=== PATIENT | male | born 1965 | race Caucasian/White ===

== ENCOUNTER 2017-11-28 09:35 | Emergency (ER) | payer SELFPAY ==
[2017-11-28] MEDS ORDERED: Sodium Chloride 0.9% 10 ML Syringe FLUSH PRN (10:19)
[2017-11-28] MEDS ORDERED: Sodium Chloride 0.9% 2.5 ML Syringe FLUSH PRN (10:19)
[2017-11-28] MEDS ORDERED: Sodium Chloride 0.9% 1,000 ML IV ONE (10:20)
[2017-11-28] MEDS ORDERED: Ondansetron 4 MG/2 ML SDV IVPUSH ONE (10:20)
--- NOTE | 2017-11-28 10:25 | EDM.PDOC ---
ED HPI GENERAL MEDICAL PROBLEM - General Chief Complaint: General Stated Complaint: WEAK Time Seen by Provider: 11/28/17 10:07 - History of Present Illness INITIAL COMMENTS - FREE TEXT/NARRATIVE: HISTORY AND PHYSICAL: History of present illness: Patient is a 52-year-old male who presents with a more than four-month history of feeling rundown, nausea and vomiting, hot flashes gradual weight loss also of appetite, which he has not seen a provider. He says he has not had a fever with this nor has he had chest pain or shortness of breath or headache, back or leg pain. He has no neurosensory changes or weakness in his extremities. He has had normal urination and says that he always has loose stools since he had his hemorrhoids operated on 6 years ago. He says that he will have intermittent episodes of feeling better and then he feels worse again all with the same symptoms. He has had episodic vomiting and says that at the end of last week he had 4 days where he could not tolerate fluids but that has improved. He has a long-standing history of tobacco use, one pack per day but says he has cut down to only 4-5 cigarettes per day. He denies drug use or alcohol use. He's told the nurse that he had Lyme disease 20 years ago and he expressed some concern to her about this, but not to me. He says he has no chronic medical problems that he is aware of, but he feels like he's missed a lot of work because of this. He also complains of a "bad tooth" at his left upper wisdom tooth which has been a problem for quite some time. He doesn't feel it there swelling. There but he wanted to mention that When I mention his blood pressure here in the ED he says that it is always "borderline or high" and he has never been seen by provider to address that or to start him on meds. He says it was discussed by provider in the past but he did not get medication Review of systems: As per history of present illness and below otherwise all systems reviewed and negative. Past medical history: As per history of present illness and as reviewed below otherwise noncontributory. Surgical history: As per history of present illness and as reviewed below otherwise noncontributory. Social history: No reported history of drug or alcohol abuse. Family history: As per history of present illness and as reviewed below otherwise noncontributory. Physical exam: General: Well-developed, well-nourished thin man who is nontoxic and speaking clearly and easily in the ED. He moves easily without distress. Vital signs are noted by me HEENT: Atraumatic, normocephalic, pupils reactive, negative for conjunctival pallor or scleral icterus, mucous membranes of the, throat clear, neck supple, nontender, trachea midline. The patient has 2 areas of dental issues both at the upper wisdom teeth, right and left and although the patient says the left has more tenderness. There is no swelling or fluctuance and the right side actually looks more red with some minimal gum swelling. There is no facial swelling Lungs: Clear to auscultation, breath sounds equal bilaterally, chest nontender. Heart: S1S2, regular, negative for clicks, rubs, or JVD. Abdomen: Soft, nondistended, nontender. Negative for masses or hepatosplenomegaly. Negative for costovertebral tenderness. Pelvis: Stable nontender. Genitourinary: Deferred. Rectal: Deferred. Extremities: Atraumatic, negative for cords or calf pain. Neurovascular unremarkable. Full range of motion without defects or deficits Neuro: Awake, alert, oriented. Cranial nerves II through XII unremarkable. Cerebellum unremarkable. Motor and sensory unremarkable throughout. Exam nonfocal. Skin: No evidence of any overt rashes or lesions, no diaphoresis, normal turgor Diagnostics: CBC CMP magnesium level Monospot, TSH UA chest x-ray.lyme titer was requested by patient Therapeutics: IV fluids Zofran Discussed with the patient all testing results .When. I contacted lab about some delays, They said that his specimen was very lipemic. I have added a lipid panel to his labs today so that those can be followed up by his provider in the clinic and addressed with medications. He is aware that his lipids and potentially triglycerides are very elevated. He is also aware of my concerns but his blood pressure and that he needs to have a discussion with his new provider about medication for that. His heart rate has since improved, but his blood pressure is still elevated without any signs of end organ damage, so I will defer to primary care next week to address that. I will advise him on salt intake and junk food intake Impression: Generalized malaise, anorexia chronic etiology unclear; lipemic blood specimen with pending labs Impacted wisdom tooth with pain rule out early infection Definitive disposition and diagnosis as appropriate pending reevaluation and review of above. - Related Data Allergies Allergy/AdvReac Type Severity Reaction Status Date / Time Penicillins Allergy Cannot Verified 11/28/17 09:58 Remember Home Meds: Home Meds . [No Known Home Meds] 01/14/15 [History] Past Medical History Gastrointestinal History: Reports: Chronic Diarrhea, Hemorrhoids Neurological History: Reports: Other (See Below) Other Neuro History: [place] Palsy Immunologic History: Reports: Other (See Below) Other Immunologic History: hx of lymphectomy - Infectious Disease History Infectious Disease History: Reports: Chicken Pox, Other (See Below) Other Infectious Disease History: Lyme Disease - Past Surgical History GI Surgical History: Reports: Hernia, Inguinal, Hernia Repair/Other, Other (See Below) Musculoskeletal Surgical History: Reports: Hip Replacement Social & Family History - Family History Family Medical History: Noncontributory - Tobacco Use Smoking Status *Q: Current Every Day Smoker Years of Tobacco use: 30 Packs/Tins Daily: 0.5 - Caffeine Use Caffeine Use: Reports: Soda - Alcohol Use Days Per Week of Alcohol Use: 7 Number of Drinks Per Day: 4 Total Drinks Per Week: 28 - Recreational Drug Use Recreational Drug Use: Yes Drug Use in Last 12 Months: Yes Recreational Drug Type: Reports: Marijuana/Hashish Recreational Drug Use Frequency: Rarely ED ROS GENERAL - Review of Systems Review Of Systems: ROS reveals no pertinent complaints other than HPI. ED EXAM, GENERAL - Physical Exam Exam: See Below (See dictation) Course - Vital Signs Last Recorded V/S: Last Vital Signs Temp 37.0 C 11/28/17 12:20 Pulse 89 11/28/17 12:20 Resp 18 11/28/17 12:20 BP 157/107 H 11/28/17 12:20 Pulse Ox 97 11/28/17 12:20 - Orders/Labs/Meds Orders: Active Orders 24 hr Category Date Time Status COMPREHENSIVE METABOLIC PN,CMP [CHEM] Stat Lab 11/28/17 10:43 Results LIPID PANEL [CHEM] Stat Lab 11/28/17 12:21 Ordered MAGNESIUM [CHEM] Stat Lab 11/28/17 10:43 Results MISC TEST Stat Lab 11/28/17 10:37 Ordered TSH [CHEM] Stat Lab 11/28/17 10:43 Results UA W/MICROSCOPIC [URIN] Stat Lab 11/28/17 12:05 Ordered Sodium Chloride 0.9% [Saline Flush] Med 11/28/17 10:19 Active 10 ml FLUSH ASDIRECTED PRN Sodium Chloride 0.9% [Saline Flush] Med 11/28/17 10:19 Active 2.5 ml FLUSH ASDIRECTED PRN Saline Lock Insert [OM.PC] Stat Oth 11/28/17 10:19 Ordered Medication Orders Sodium Chloride (Saline Flush) 10 ml FLUSH ASDIRECTED PRN PRN Reason: Keep Vein Open Sodium Chloride (Saline Flush) 2.5 ml FLUSH ASDIRECTED PRN PRN Reason: Keep Vein Open Labs: Laboratory Tests 11/28/17 11/28/17 11/28/17 Range/Units 10:43 10:43 10:43 WBC 7.23 (4.0-11.0) K/uL RBC 4.77 (4.50-5.90) M/uL Hgb 15.4 (13.0-17.0) g/dL Hct 44.8 (38.0-50.0) % MCV 93.9 (80.0-98.0) fL MCH 32.3 H (27.0-32.0) pg MCHC 34.4 (31.0-37.0) g/dL RDW Std Deviation 54.2 (28.0-62.0) fl RDW Coeff of Zachary 16 H (11.0-15.0) % Plt Count 244 (150-400) K/uL MPV 10.50 (7.40-12.00) fL Neut % (Auto) 63.4 (48.0-80.0) % Lymph % (Auto) 28.6 (16.0-40.0) % Stephens % (Auto) 6.8 (0.0-15.0) % Eos % (Auto) 0.6 (0.0-7.0) % Baso % (Auto) 0.6 (0.0-1.5) % Neut # (Auto) 4.6 (1.4-5.7) K/uL Lymph # (Auto) 2.1 (0.6-2.4) K/uL Stephens # (Auto) 0.5 (0.0-0.8) K/uL Eos # (Auto) 0.0 (0.0-0.7) K/uL Baso # (Auto) 0.0 (0.0-0.1) K/uL Nucleated RBC % 0.0 /100WBC Nucleated RBCs # 0 K/uL Sodium 134 L (136-148) mmol/L Potassium 4.8 (3.5-5.1) mmol/L Chloride 100 (98-107) mmol/L Carbon Dioxide 25.0 (21.0-32.0) mmol/L BUN 13 (7.0-18.0) mg/dL Creatinine 0.9 (0.8-1.3) mg/dL Est Cr Clr Drug Dosing 87.63 mL/min Estimated GFR (MDRD) > 60.0 ml/min Glucose 112 H (74-106) mg/dL Calcium 9.2 (8.5-10.1) mg/dL Magnesium 1.8 (1.5-2.0) mg/dL Total Bilirubin 0.6 (0.2-1.0) mg/dL Alkaline Phosphatase 196 H (46-116) U/L Total Protein 7.2 (6.4-8.2) g/dL Albumin 3.4 (3.4-5.0) g/dL Globulin 3.8 H (2.0-3.5) g/dL Albumin/Globulin Ratio 0.9 L (1.3-2.8) TSH 3rd Generation 2.25 (0.36-3.74) uIU/mL Urine Color Urine Appearance Urine pH (5.0-8.0) Ur Specific [place] (1.001-1.035) Urine Protein (NEGATIVE) mg/dL Urine Glucose (UA) (NEGATIVE) mg/dL Urine Ketones (NEGATIVE) mg/dL Urine Occult Blood (NEGATIVE) Urine Nitrite (NEGATIVE) Urine Bilirubin (NEGATIVE) Urine Urobilinogen (<2.0) EU/dL Ur Leukocyte Esterase (NEGATIVE) Urine RBC (0-2/HPF) Urine WBC (0-5/HPF) Ur Epithelial Cells (NONE-FEW) Urine Bacteria (NEGATIVE) Monoscreen NEGATIVE (NEG) 11/28/17 Range/Units 12:05 WBC (4.0-11.0) K/uL RBC (4.50-5.90) M/uL Hgb (13.0-17.0) g/dL Hct (38.0-50.0) % MCV (80.0-98.0) fL MCH (27.0-32.0) pg MCHC (31.0-37.0) g/dL RDW Std Deviation (28.0-62.0) fl RDW Coeff of Zachary (11.0-15.0) % Plt Count (150-400) K/uL MPV (7.40-12.00) fL Neut % (Auto) (48.0-80.0) % Lymph % (Auto) (16.0-40.0) % Stephens % (Auto) (0.0-15.0) % Eos % (Auto) (0.0-7.0) % Baso % (Auto) (0.0-1.5) % Neut # (Auto) (1.4-5.7) K/uL Lymph # (Auto) (0.6-2.4) K/uL Stephens # (Auto) (0.0-0.8) K/uL Eos # (Auto) (0.0-0.7) K/uL Baso # (Auto) (0.0-0.1) K/uL Nucleated RBC % /100WBC Nucleated RBCs # K/uL Sodium (136-148) mmol/L Potassium (3.5-5.1) mmol/L Chloride (98-107) mmol/L Carbon Dioxide (21.0-32.0) mmol/L BUN (7.0-18.0) mg/dL Creatinine (0.8-1.3) mg/dL Est Cr Clr Drug Dosing mL/min Estimated GFR (MDRD) ml/min Glucose (74-106) mg/dL Calcium (8.5-10.1) mg/dL Magnesium (1.5-2.0) mg/dL Total Bilirubin (0.2-1.0) mg/dL Alkaline Phosphatase (46-116) U/L Total Protein (6.4-8.2) g/dL Albumin (3.4-5.0) g/dL Globulin (2.0-3.5) g/dL Albumin/Globulin Ratio (1.3-2.8) TSH 3rd Generation (0.36-3.74) uIU/mL Urine Color YELLOW Urine Appearance CLEAR Urine pH 7.0 (5.0-8.0) Ur Specific [place] 1.020 (1.001-1.035) Urine Protein NEGATIVE (NEGATIVE) mg/dL Urine Glucose (UA) NEGATIVE (NEGATIVE) mg/dL Urine Ketones NEGATIVE (NEGATIVE) mg/dL Urine Occult Blood NEGATIVE (NEGATIVE) Urine Nitrite NEGATIVE (NEGATIVE) Urine Bilirubin NEGATIVE (NEGATIVE) Urine Urobilinogen 0.2 (<2.0) EU/dL Ur Leukocyte Esterase NEGATIVE (NEGATIVE) Urine RBC 0-1 (0-2/HPF) Urine WBC 0-1 (0-5/HPF) Ur Epithelial Cells RARE (NONE-FEW) Urine Bacteria RARE (NEGATIVE) Monoscreen (NEG) Meds: Medications Generic Name Dose Route Start Last Admin Trade Name Freq PRN Reason Stop Dose Admin Sodium Chloride 10 ml 11/28/17 10:19 Saline Flush FLUSH ASDIRECTED PRN Keep Vein Open Sodium Chloride 2.5 ml 11/28/17 10:19 Saline Flush FLUSH ASDIRECTED PRN Keep Vein Open Discontinued Medications Generic Name Dose Route Start Last Admin Trade Name Freq PRN Reason Stop Dose Admin Sodium Chloride 1,000 mls @ 999 mls/hr 11/28/17 10:20 11/28/17 10:36 Normal Saline IV 11/28/17 11:20 999 mls/hr STAT ONE Administration Ondansetron HCl 4 mg 11/28/17 10:20 11/28/17 10:36 Zofran IVPUSH 11/28/17 10:21 4 mg ONETIME ONE Administration Departure - Departure Time of Disposition: 12:26 Disposition: Home, Self-Care 01 Condition: Good Clinical Impression: Generalized weakness, Malaise and fatigue, Pain, dental - Discharge Information Referrals: Aramis Castillo MD [Resident] - (Appt with at 0930 on December 05. Please come 15 minutes before you appt for registration) PCP,None [Primary Care Provider] - Forms: ED Department Discharge Additional Instructions: The following information is given to patients seen in the emergency department who are being discharged to home. This information is to outline your options for follow-up care. We provide all patients seen in our emergency department with a follow-up referral. The need for follow-up, as well as the timing and circumstances, are variable depending upon the specifics of your emergency department visit. If you don't have a primary care physician on staff, we will provide you with a referral. We always advise you to contact your personal physician following an emergency department visit to inform them of the circumstance of the visit and for follow-up with them and/or the need for any referrals to a consulting specialist. The emergency department will also refer you to a specialist when appropriate. This referral assures that you have the opportunity for followup care with a specialist. All of these measure are taken in an effort to provide you with optimal care, which includes your followup. Under all circumstances we always encourage you to contact your private physician who remains a resource for coordinating your care. When calling for followup care, please make the office aware that this follow-up is from your recent emergency room visit. If for any reason you are refused follow-up, please contact the [facility] emergency department at and ask to speak to the emergency department charge nurse. [facility] Primary care- [place] [address] You have a scheduled follow-up appointment next week on December 05 at 9:[address] Casitllo with the family practice residency clinic. Please keep that appointment as scheduled for further care and evaluation as we discussed. Push hydration, rest and try to eat small bites of food on a more frequent basis and continue to reduce and stop smoking. Please discuss with your new provider in the clinic. Your blood pressure as we discussed. Try to avoid salty foods and excess added salt. Return to ER as needed and as discussed. Please take antibiotics for your tooth as directed and use [id number] medications for any pain You can also discuss with her new provider the lab tests that were sent out to be performed and those results, Lyme disease titer. He will also need to address the lipid panel that was added onto your blood work upon discharge as these tests may be elevated and need to be addressed with medications - My Orders Last 24 Hours: My Active Orders 11/28/17 10:19 Sodium Chloride 0.9% [Saline Flush] 10 ml FLUSH ASDIRECTED PRN Sodium Chloride 0.9% [Saline Flush] 2.5 ml FLUSH ASDIRECTED PRN Saline Lock Insert [OM.PC] Stat 11/28/17 10:37 MISC TEST Stat 11/28/17 10:43 COMPREHENSIVE METABOLIC PN,CMP [CHEM] Stat MAGNESIUM [CHEM] Stat TSH [CHEM] Stat 11/28/17 12:05 UA W/MICROSCOPIC [URIN] Stat 11/28/17 12:21 LIPID PANEL [CHEM] Stat - Assessment/Plan Last 24 Hours: My Active Orders 11/28/17 10:19 Sodium Chloride 0.9% [Saline Flush] 10 ml FLUSH ASDIRECTED PRN Sodium Chloride 0.9% [Saline Flush] 2.5 ml FLUSH ASDIRECTED PRN Saline Lock Insert [OM.PC] Stat 11/28/17 10:37 MISC TEST Stat 11/28/17 10:43 COMPREHENSIVE METABOLIC PN,CMP [CHEM] Stat MAGNESIUM [CHEM] Stat TSH [CHEM] Stat 11/28/17 12:05 UA W/MICROSCOPIC [URIN] Stat 11/28/17 12:21 LIPID PANEL [CHEM] Stat
--- NOTE | 2017-11-28 11:15 | CR ---
EXAMINATION: Portable chest radiograph. HISTORY: Shortness of breath. FINDINGS: The trachea is midline. The cardiomediastinal silhouette is within normal limits. No pulmonary infilt rates, effusions or pneumothorax. Osseous structures appear unremarkable. IMPRESSION: No acute cardiopulmonary process.
[2017-11-28 11:45] LABS: CHLORIDE,CL 100 mmol/L (98-107)
[2017-11-28 11:52] LABS: SODIUM,NA 134 mmol/L (136-148)
[2017-11-28 12:21] VITALS: BP 157/107
== END 2017-11-28 12:41 | disposition home or self-care (01) ==
LOC: MW.ED 09:35
DX: K08.89 Other specified disorders of teeth and supporting structures (principal); R53.81 Other malaise; R53.1 Weakness; R63.0 Anorexia; F17.210 Nicotine dependence, cigarettes, uncomplicated; Z88.0 Allergy status to penicillin
CPT/HCPCS: 36415; 71045; 80053; 80061; 81001; 83735; 84443; 85025; 86308; 96361; 96374; 99283; J2405; J7040

== ENCOUNTER 2017-12-01 19:36 | Emergency (ER) | payer SELFPAY ==
[2017-12-01] MEDS ORDERED: Sodium Chloride 0.9% 1,000 ML IV ONE (19:47)
--- NOTE | 2017-12-01 19:49 | EDM.PDOC ---
ED HPI GENERAL MEDICAL PROBLEM - General Chief Complaint: General Stated Complaint: CONFUSION/FATIGUE Time Seen by Provider: 12/01/17 19:39 - History of Present Illness INITIAL COMMENTS - FREE TEXT/NARRATIVE: HISTORY AND PHYSICAL: History of present illness: Patient's 52-year-old white male history of chronic alcohol abuse who presents with concern of general fatigue he was seen for the same 3 days prior had an extensive workup his sisters here with him today wanting them reevaluated due to her plans on taking him to [place] with her. There is no chest pain vomiting diarrhea shortness of breath or other complaints. Review of systems: As per history of present illness and below otherwise all systems reviewed and negative. Past medical history: As per history of present illness and as reviewed below otherwise noncontributory. Surgical history: As per history of present illness and as reviewed below otherwise noncontributory. Social history: No reported history of drug or alcohol abuse. Family history: As per history of present illness and as reviewed below otherwise noncontributory. Physical exam: HEENT: Atraumatic, normocephalic, pupils reactive, negative for conjunctival pallor or scleral icterus, mucous membranes moist, throat clear, neck supple, nontender, trachea midline. Lungs: Clear to auscultation, breath sounds equal bilaterally, chest nontender. Heart: S1S2, regular, negative for clicks, rubs, or JVD. Abdomen: Soft, nondistended, nontender. Negative for masses or hepatosplenomegaly. Negative for costovertebral tenderness. Pelvis: Stable nontender. Genitourinary: Deferred. Rectal: Deferred. Extremities: Atraumatic, negative for cords or calf pain. Neurovascular unremarkable. Neuro: Awake, alert, oriented. Cranial nerves II through XII unremarkable. Cerebellum unremarkable. Motor and sensory unremarkable throughout. Exam nonfocal. Diagnostics: CBC CMP PT/INR EtOH EKG chest x-ray Therapeutics: Saline 1 L bolus Impression: #1 ethanol abuse #2 general malaise Definitive disposition and diagnosis as appropriate pending reevaluation and review of above. - Related Data Allergies Allergy/AdvReac Type Severity Reaction Status Date / Time Penicillins Allergy Cannot Verified 11/28/17 09:58 Remember Home Meds: Home Meds Amoxicillin 500 mg PO TID 12/01/17 [History] Past Medical History Gastrointestinal History: Reports: Chronic Diarrhea, Hemorrhoids Neurological History: Reports: Other (See Below) Other Neuro History: [place] Palsy Immunologic History: Reports: Other (See Below) Other Immunologic History: hx of lymphectomy - Infectious Disease History Infectious Disease History: Reports: Chicken Pox, Other (See Below) Other Infectious Disease History: Lyme Disease - Past Surgical History GI Surgical History: Reports: Hernia, Inguinal, Hernia Repair/Other, Other (See Below) Musculoskeletal Surgical History: Reports: Hip Replacement Social & Family History - Family History Family Medical History: Noncontributory - Tobacco Use Smoking Status *Q: Current Every Day Smoker Years of Tobacco use: 30 Packs/Tins Daily: 0.5 - Caffeine Use Caffeine Use: Reports: Soda - Alcohol Use Days Per Week of Alcohol Use: 7 Number of Drinks Per Day: 4 Total Drinks Per Week: 28 - Recreational Drug Use Recreational Drug Use: Yes Drug Use in Last 12 Months: Yes Recreational Drug Type: Reports: Marijuana/Hashish Recreational Drug Use Frequency: Rarely ED ROS GENERAL - Review of Systems Review Of Systems: ROS reveals no pertinent complaints other than HPI. ED EXAM, GENERAL - Physical Exam Exam: See Below (See dictation) Course - Vital Signs Last Recorded V/S: Last Vital Signs Temp 36.7 C 12/01/17 20:50 Pulse 80 12/01/17 20:50 Resp 16 12/01/17 20:50 BP 143/93 H 12/01/17 20:50 Pulse Ox 99 12/01/17 20:50 - Orders/Labs/Meds Orders: Active Orders 24 hr Category Date Time Status EKG Documentation Completion [RC] STAT Care 12/01/17 19:47 Active Chest 1V Frontal [CR] Stat Exams 12/01/17 19:47 Taken COMPREHENSIVE METABOLIC PN,CMP [CHEM] Stat Lab 12/01/17 20:00 Results ETHANOL BLOOD MEDICAL [CHEM] Stat Lab 12/01/17 20:00 Results LIPASE [CHEM] Stat Lab 12/01/17 20:00 Results Labs: Laboratory Tests 12/01/17 12/01/17 12/01/17 Range/Units 20:00 20:00 20:00 WBC 8.84 (4.0-11.0) K/uL RBC 5.21 (4.50-5.90) M/uL Hgb 17.1 H (13.0-17.0) g/dL Hct 48.3 (38.0-50.0) % MCV 92.7 (80.0-98.0) fL MCH 32.8 H (27.0-32.0) pg MCHC 35.4 (31.0-37.0) g/dL RDW Std Deviation 54.5 (28.0-62.0) fl RDW Coeff of Zachary 16 H (11.0-15.0) % Plt Count 337 (150-400) K/uL MPV 10.10 (7.40-12.00) fL Neut % (Auto) 56.6 (48.0-80.0) % Lymph % (Auto) 37.3 (16.0-40.0) % Warren % (Auto) 5.1 (0.0-15.0) % Eos % (Auto) 0.3 (0.0-7.0) % Baso % (Auto) 0.7 (0.0-1.5) % Neut # (Auto) 5.0 (1.4-5.7) K/uL Lymph # (Auto) 3.3 H (0.6-2.4) K/uL Warren # (Auto) 0.5 (0.0-0.8) K/uL Eos # (Auto) 0.0 (0.0-0.7) K/uL Baso # (Auto) 0.1 (0.0-0.1) K/uL Nucleated RBC % 0.0 /100WBC Nucleated RBCs # 0 K/uL INR 1.17 Sodium 131 L (136-148) mmol/L Potassium 4.1 (3.5-5.1) mmol/L Chloride 95 L (98-107) mmol/L Carbon Dioxide 26.7 (21.0-32.0) mmol/L BUN 14 (7.0-18.0) mg/dL Creatinine 1.0 (0.8-1.3) mg/dL Est Cr Clr Drug Dosing 75.69 mL/min Estimated GFR (MDRD) > 60.0 ml/min Glucose 139 H (74-106) mg/dL Calcium 8.5 (8.5-10.1) mg/dL Total Bilirubin 0.7 (0.2-1.0) mg/dL AST 173 H (15-37) IU/L Alkaline Phosphatase 194 H (46-116) U/L Total Protein 7.5 (6.4-8.2) g/dL Albumin 3.5 (3.4-5.0) g/dL Globulin 4.0 H (2.0-3.5) g/dL Albumin/Globulin Ratio 0.9 L (1.3-2.8) Lipase 358 (73-393) U/L Ethyl Alcohol 219 mg/dL Meds: Medications Discontinued Medications Generic Name Dose Route Start Last Admin Trade Name Say PRN Reason Stop Dose Admin Sodium Chloride 1,000 mls @ 999 mls/hr 12/01/17 19:47 12/01/17 20:01 Normal Saline IV 12/01/17 20:47 999 mls/hr STAT ONE Administration Departure - Departure Time of Disposition: 21:23 Disposition: Home, Self-Care 01 Condition: Good Clinical Impression: ETOH abuse - Discharge Information Referrals: PCP,None [Primary Care Provider] - Forms: ED Department Discharge Additional Instructions: The following information is given to patients seen in the emergency department who are being discharged to home. This information is to outline your options for follow-up care. We provide all patients seen in our emergency department with a follow-up referral. The need for follow-up, as well as the timing and circumstances, are variable depending upon the specifics of your emergency department visit. If you don't have a primary care physician on staff, we will provide you with a referral. We always advise you to contact your personal physician following an emergency department visit to inform them of the circumstance of the visit and for follow-up with them and/or the need for any referrals to a consulting specialist. The emergency department will also refer you to a specialist when appropriate. This referral assures that you have the opportunity for followup care with a specialist. All of these measure are taken in an effort to provide you with optimal care, which includes your followup. Under all circumstances we always encourage you to contact your private physician who remains a resource for coordinating your care. When calling for followup care, please make the office aware that this follow-up is from your recent emergency room visit. If for any reason you are refused follow-up, please contact the [facility] emergency department at and asked to speak to the emergency department charge nurse. Follow-up medical doctor as discussed return as needed as discussed - My Orders Last 24 Hours: My Active Orders 12/01/17 19:47 EKG Documentation Completion [RC] STAT Chest 1V Frontal [CR] Stat 12/01/17 20:00 COMPREHENSIVE METABOLIC PN,CMP [CHEM] Stat ETHANOL BLOOD MEDICAL [CHEM] Stat LIPASE [CHEM] Stat - Assessment/Plan Last 24 Hours: My Active Orders 12/01/17 19:47 EKG Documentation Completion [RC] STAT Chest 1V Frontal [CR] Stat 12/01/17 20:00 COMPREHENSIVE METABOLIC PN,CMP [CHEM] Stat ETHANOL BLOOD MEDICAL [CHEM] Stat LIPASE [CHEM] Stat
[2017-12-01 21:09] LABS: CHLORIDE,CL 95 mmol/L (98-107)
[2017-12-01 21:12] LABS: SODIUM,NA 131 mmol/L (136-148)
[2017-12-01 21:36] VITALS: BP 142/95
--- NOTE | 2017-12-03 14:50 | CR ---
EXAM DATE: 12/01/17 PATIENT'S AGE: 52 Patient: MIKEY RUIZ Facility: [place], [place] Site . Site : 1965 Study: XRay Chest [id number] 8:05:16 PM Ordering Physician: Damien Michaud Final Report: INDICATION: Chest Pain, shortness of breath TECHNIQUE: Chest radiograph 1 view COMPARISON: 06/01/09 FINDINGS: Mediastinum: The heart silhouette is normal in size and morphology. The mediastinum is normal in appearance. Lungs: Both lungs are unremarkable in appearance. No sign of pleural effusion seen. No pneumothorax is identified. Bones and soft tissue: Unremarkable for age. IMPRESSION: 1. No acute cardiopulmonary disease is seen. Dictated by: Zack Nunes MD @ 12/01/2017 20:27:43 (Electronic Signature) Report Signed by Proxy. [facility] HOSPITALChema
== END 2017-12-01 21:35 | disposition home or self-care (01) ==
LOC: MW.ED 19:36
DX: F10.120 Alcohol abuse with intoxication, uncomplicated (principal); F17.210 Nicotine dependence, cigarettes, uncomplicated; Y90.7 Blood alcohol level of 200-239 mg/100 ml; Z88.0 Allergy status to penicillin
CPT/HCPCS: 71045; 80053; 83690; 85025; 85610; 93005; 96360; 96361; 99285; G0480; J7040

== ENCOUNTER 2018-01-25 11:02 | Day surgery (SDC) | payer MEDICAID ==
[~2018-01-25 11:02] MED LIST: Lactated Ringers 1,000 ML IV SCH; Lidocaine 2% 5 ML SDV ONE; Propofol 200 MG/20 ML SDV ONE
--- NOTE | 2018-01-25 11:56 | PCM.PREANE ---
Preanesthetic Assessment - Anesthesia/Transfusion/Family Hx Anesthesia History: Prior Anesthesia Without Reaction Family History of Anesthesia Reaction: No Transfusion History: No Prior Transfusion(s) - Review of Systems General: No Symptoms Pulmonary: No Symptoms Neurological: No Symptoms - Physical Assessment NPO Status Date: 01/24/18 Height: 1.75 m Weight: 64.864 kg ASA Class: 2 Mental Status: Alert & Oriented x3 Airway Class: Mallampati = 2 Dentition: Reports: Normal Dentition ROM/Head Extension: Full Lungs: Clear to Auscultation, Normal Respiratory Effort Cardiovascular: Regular Rate, Regular Rhythm - Allergies Allergies/Adverse Reactions: Allergies Allergy/AdvReac Type Severity Reaction Status Date / Time No Known Allergies Allergy Verified 01/22/18 11:37 - Anesthesia Plan Pre-Op Medication Ordered: None - Acknowledgements Anesthesia Type Planned: MAC Pt an Appropriate Candidate for the Planned Anesthesia: Yes Alternatives and Risks of Anesthesia Discussed w Pt/Guardian: Yes Pt/Guardian Understands and Agrees with Anesthesia Plan: Yes Additional Comments: formerly heavy alcohol use, significant reduction in use over the last few weeks. Did not take bowel prep last night. Will prob cancel PreAnesthesia Questionnaire - Past Health History Medical/Surgical History: Denies Medical/Surgical History HEENT History: Reports: Other (See Below) Other HEENT History: wears contacts Gastrointestinal History: Reports: Hemorrhoids, Other (See Below) Other Gastrointestinal History: recently treated for C-diff Genitourinary History: Reports: None, Renal Calculus Musculoskeletal History: Reports: Fracture Neurological History: Reports: Concussion, Other (See Below) Other Neuro History: hx [place] Palsy Psychiatric History: Reports: Anxiety Endocrine/Metabolic History: Reports: None Immunologic History: - Infectious Disease History Infectious Disease History: Reports: Chicken Pox, Other (See Below) Other Infectious Disease History: Lyme Disease - Past Surgical History Head Surgeries/Procedures: Reports: None GI Surgical History: Reports: Hernia, Inguinal, Other (See Below) Other GI Surgeries/Procedures: hemorrhoidectomy, padmini inguinal hernia repair Musculoskeletal Surgical History: Reports: Hip Replacement Other Musculoskeletal Surgeries/Procedures:: rt hip replacement - SUBSTANCE USE Smoking Status *Q: Current Every Day Smoker Tobacco Use Within Last Twelve Months: Cigarettes Days Per Week of Alcohol Use: 7 Number of Drinks Per Day: 2 Total Drinks Per Week: 14 Recreational Drug Use History: No - HOME MEDS Home Medications: Home Meds Ascorbate Calcium [Vitamin C] 1 tab PO DAILY 01/22/18 [History] Cholecalciferol (Vitamin D3) [Vitamin D3] 1 tab PO DAILY 01/22/18 [History] Multivitamin [Multivitamins] 1 tab PO DAILY 01/22/18 [History] - CURRENT (IN HOUSE) MEDS Current Meds: Current Medications Lactated Ringer's (Ringers, Lactated) 1,000 mls @ 125 mls/hr IV ASDIRECTED LATRELL Discontinued Medications Lidocaine (Xylocaine-Mpf 2%) Confirm Administered Dose 5 ml .ROUTE .STK-MED ONE Stop: 01/25/18 07:40 Propofol (Diprivan 20 Ml) Confirm Administered Dose 400 mg .ROUTE .STK-MED ONE Stop: 01/25/18 07:40
== END 2018-01-25 12:00 ==
LOC: MW.SDS 11:02
PROVIDERS: ATTEND Surgery
DX: Z12.11 Encounter for screening for malignant neoplasm of colon (principal); F17.210 Nicotine dependence, cigarettes, uncomplicated; F41.9 Anxiety disorder, unspecified; Z79.899 Other long term (current) drug therapy; Z98.890 Other specified postprocedural states; Z53.8 Procedure and treatment not carried out for other reasons
CPT/HCPCS: J2704

== ENCOUNTER 2018-02-01 10:02 | Day surgery (SDC) | payer MEDICAID ==
[~2018-02-01 10:02] MED LIST changes: -Lidocaine 2% 5 ML SDV ONE; +Midazolam 1 MG/ML 2 ML SDV ONE; +fentaNYL 100 MCG/2 ML SDV ONE
--- NOTE | 2018-02-01 10:46 | PCM.PREANE ---
Preanesthetic Assessment - Anesthesia/Transfusion/Family Hx Anesthesia History: Prior Anesthesia Without Reaction Family History of Anesthesia Reaction: No Transfusion History: No Prior Transfusion(s) Intubation History: Unknown - Review of Systems General: No Symptoms Pulmonary: No Symptoms Cardiovascular: No Symptoms Gastrointestinal: Diarrhea, Other (brandon loss) Neurological: No Symptoms Other: Reports: None - Physical Assessment Height: 1.77 m Weight: 64.864 kg ASA Class: 2 Mental Status: Alert & Oriented x3 Airway Class: Mallampati = 2 Dentition: Reports: Normal Dentition, [place](s) (x1 upper front) Thyro-Mental Finger Breadths: 3 Mouth Opening Finger Breadths: 3 ROM/Head Extension: Full Lungs: Clear to Auscultation, Normal Respiratory Effort Cardiovascular: Regular Rate, Regular Rhythm - Allergies Allergies/Adverse Reactions: Allergies Allergy/AdvReac Type Severity Reaction Status Date / Time No Known Allergies Allergy Verified 01/22/18 11:37 - Blood Blood Available: No - Anesthesia Plan Pre-Op Medication Ordered: None - Acknowledgements Anesthesia Type Planned: MAC Pt an Appropriate Candidate for the Planned Anesthesia: Yes Alternatives and Risks of Anesthesia Discussed w Pt/Guardian: Yes Pt/Guardian Understands and Agrees with Anesthesia Plan: Yes PreAnesthesia Questionnaire - Past Health History Medical/Surgical History: Denies Medical/Surgical History HEENT History: Reports: Other (See Below) Other HEENT History: wears contacts 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) Gastrointestinal History: Reports: Chronic Diarrhea, Hemorrhoids Other Gastrointestinal History: recently treated for C-diff Genitourinary History: Reports: None, Renal Calculus Musculoskeletal History: Reports: Fracture Neurological History: Reports: Other (See Below) 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 internal and external hemorrhoidectomy Musculoskeletal Surgical History: Reports: Hip Replacement Other Musculoskeletal Surgeries/Procedures:: rt hip replacement - SUBSTANCE USE Smoking Status *Q: Current Every Day Smoker (1 ppd) Tobacco Use Within Last Twelve Months: Cigarettes Recreational Drug Use History: No - HOME MEDS Home Medications: Home Meds Ascorbate Calcium [Vitamin C] 1 tab PO DAILY 01/22/18 [History] Cholecalciferol (Vitamin D3) [Vitamin D3] 1 tab PO DAILY 01/22/18 [History] Multivitamin [Multivitamins] 1 tab PO DAILY 01/22/18 [History] Vitamin B Complex [B Complex] 1 tab PO DAILY 01/29/18 [History] - CURRENT (IN HOUSE) MEDS Current Meds: Current Medications Lactated Ringer's (Ringers, Lactated) 1,000 mls @ 125 mls/hr IV ASDIRECTED LATRELL Discontinued Medications Fentanyl (Sublimaze) Confirm Administered Dose 100 mcg .ROUTE .STK-MED ONE Stop: 02/01/18 07:36 Midazolam HCl (Versed 1 Mg/Ml) Confirm Administered Dose 2 mg .ROUTE .STK-MED ONE Stop: 02/01/18 07:36 Propofol (Diprivan 20 Ml) Confirm Administered Dose 200 mg .ROUTE .STK-MED ONE Stop: 02/01/18 07:36
[2018-02-01] MEDS ORDERED: Propofol 200 MG/20 ML SDV ONE (10:52)
[2018-02-01] MEDS ORDERED: fentaNYL 100 MCG/2 ML SDV ONE (11:05)
[2018-02-01 11:50] VITALS: BP 122/89
--- NOTE | 2018-02-01 12:23 | PCM.OPNOTE ---
- General Post-Op/Procedure Note Date of Surgery/Procedure: 02/01/18 Operative Procedure(s): attempted colonoscopy Findings: scoped to 20cm, pt kept on farting, and finally spitted out the scope; pt scheduled for BE for incomplete colonoscopy; see dictation for details; see dict [id number] Pre Op Diagnosis: scrn colonoscopy Post-Op Diagnosis: Same Primary Surgeon: Gerald Preston Complications: None Condition: Good Free Text/Narrative:: Intake & Output 01/31/18 02/01/18 02/01/18 22:59 06:59 14:59 Intake Total 400 Balance 400
--- NOTE | 2018-02-01 12:41 | PCM48HPAN ---
Post Anesthesia Note - EVALUATION WITHIN 48HRS OF ANESTHETIC Vital Signs in Normal Range: Yes Patient Participated in Evaluation: Yes Respiratory Function Stable: Yes Airway Patent: Yes Cardiovascular Function Stable: Yes Hydration Status Stable: Yes Pain Control Satisfactory: Yes Nausea and Vomiting Control Satisfactory: Yes Mental Status Recovered: Yes Resp Rate: 14 - COMMENTS/OBSERVATIONS Free Text/Narrative:: no anesthesia problems, due to inability to complete colonoscopy patient will have barium enema study
--- NOTE | 2018-02-01 14:54 | CR ---
EXAMINATION: Single contrast barium enema HISTORY: Incomplete colonoscopy COMPARISON: None TECHNIQUE: Standard single contrast barium enema was performed. FINDINGS: No free air noted on the antenna machine operator imaging. The rectum and colon are normally distensible. No f illing defect or ulceration identified. No significant diverticulosis. Mild reflux into the terminal ileum. IMPRESSION: 1. No filling defect identified.
--- NOTE | 2018-02-01 15:15 | OR ---
SURGEON: Gerald Preston MD DATE OF PROCEDURE: 02/01/2018 PREOPERATIVE DIAGNOSIS: Screening colonoscopy. POSTOPERATIVE DIAGNOSIS: Incomplete colonoscopy. PROCEDURE PERFORMED: Attempted colonoscopy PROCEDURE IN DETAIL: The patient was taken to the endoscopy room and placed in a left decub position and then general anesthesia was given by AMUSEMENT CENTRE MANAGER and the patient slowly began to sleep and prior to sleeping, hearing, physician talking is normal, and after a few minutes, a well lubricated endoscopy was gently inserted. Rectal exam has been performed prior to the insertion scope and the patient's prostate was moved and there was no mass. A well lubricated Delta endoscope was gently inserted through the rectum and attempted to negotiate the rectosigmoid junction and at the same time, multiple attempts have been tried. The patient is seen to be farting a lot and eventually spit out the scope. The patient continued to farting. In light of the situation, the patient has not tolerated anesthetic agent, attempted scope to 20 cm and no disease observed. ARPITA / GUILLE /[id number] TAY
== END 2018-02-01 13:55 | disposition home or self-care (01) ==
LOC: MW.SDS 10:02
PROVIDERS: ATTEND Surgery
DX: R19.4 Change in bowel habit (principal); E78.1 Pure hyperglyceridemia; F41.9 Anxiety disorder, unspecified; F17.210 Nicotine dependence, cigarettes, uncomplicated; Z79.899 Other long term (current) drug therapy
CPT/HCPCS: 45330; 74270; J2250; J3010; J7120; J2704

== ENCOUNTER 2018-04-23 07:16 | Emergency (ER) | payer MEDICAID ==
[2018-04-23 07:37] VITALS: BP 128/80
[2018-04-23] MEDS ORDERED: cefTRIAXone 1,000 MG in Lidocaine 1% 4 ML IM ONE (07:58)
--- NOTE | 2018-04-23 08:03 | EDM.PDOC ---
ED HPI GENERAL MEDICAL PROBLEM - General Chief Complaint: ENT Problem Stated Complaint: BOIL OR CYST IN THROAT Time Seen by Provider: 04/23/18 08:01 Source of Information: Reports: Patient - History of Present Illness INITIAL COMMENTS - FREE TEXT/NARRATIVE: HISTORY AND PHYSICAL: History of present illness: []Patient is a 52-year-old smoker presents with sore throat for 3 days increasing in severity some difficulty with solid food no difficulty with liquid is able to speak easily with no muffled voice drooling or trismus Review of systems: As per history of present illness and below otherwise all systems reviewed and negative. Past medical history: As per history of present illness and as reviewed below otherwise noncontributory. Surgical history: As per history of present illness and as reviewed below otherwise noncontributory. Social history: No reported history of drug or alcohol abuse. Family history: As per history of present illness and as reviewed below otherwise noncontributory. Physical exam: HEENT: Atraumatic, normocephalic, pupils reactive, negative for conjunctival pallor or scleral icterus, mucous membranes moist, throat clear, neck supple, nontender, trachea midline. moderate erythema oropharynx no stridor no meningeal signs no drooling Lungs: Clear to auscultation, breath sounds equal bilaterally, chest nontender. Heart: S1S2, regular, negative for clicks, rubs, or JVD. Abdomen: Soft, nondistended, nontender. Negative for masses or hepatosplenomegaly. Negative for costovertebral tenderness. Pelvis: Stable nontender. Genitourinary: Deferred. Rectal: Deferred. Extremities: Atraumatic, negative for cords or calf pain. Neurovascular unremarkable. Neuro: Awake, alert, oriented. Cranial nerves II through XII unremarkable. Cerebellum unremarkable. Motor and sensory unremarkable throughout. Exam nonfocal. Diagnostics: [Rapid strep ] Therapeutics: [ 1 g Rocephin IM Amoxicillin 400 mg per 5 mL 200 mL's impression: [ acute pharyngitis ] Definitive disposition and diagnosis as appropriate pending reevaluation and review of above. Throat Pain Score (Numeric/FACES): 9 Generalized Pain Score (Numeric/FACES): 6 - Related Data Allergies Allergy/AdvReac Type Severity Reaction Status Date / Time No Known Allergies Allergy Verified 04/23/18 07:26 Home Meds: Home Meds Ascorbate Calcium [Vitamin C] 1 tab PO DAILY 01/22/18 [History] Cholecalciferol (Vitamin D3) [Vitamin D3] 1 tab PO DAILY 01/22/18 [History] Multivitamin [Multivitamins] 1 tab PO DAILY 01/22/18 [History] Vitamin B Complex [B Complex] 1 tab PO DAILY 01/29/18 [History] Past Medical History - Past Health History Medical/Surgical History: Denies Medical/Surgical History HEENT History: Reports: Other (See Below) Other HEENT History: wears contacts 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) Gastrointestinal History: Reports: Chronic Diarrhea, Hemorrhoids Other Gastrointestinal History: recently treated for C-diff Genitourinary History: Reports: None, Renal Calculus Musculoskeletal History: Reports: Fracture Neurological History: Reports: Other (See Below) 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 internal and external hemorrhoidectomy Musculoskeletal Surgical History: Reports: Hip Replacement Other Musculoskeletal Surgeries/Procedures:: rt hip replacement Social & Family History - Family History Family Medical History: Noncontributory - Tobacco Use Smoking Status *Q: Current Every Day Smoker Years of Tobacco use: 35 Packs/Tins Daily: 1 Used Tobacco, but Quit: No Second Hand Smoke Exposure: No - Caffeine Use Caffeine Use: Reports: Coffee, Soda - Alcohol Use Days Per Week of Alcohol Use: 5 Number of Drinks Per Day: 2 Total Drinks Per Week: 10 - Recreational Drug Use Recreational Drug Use: No ED ROS ENT - Review of Systems Review Of Systems: See Below ED EXAM, ENT - Physical Exam Exam: See Below Course - Vital Signs Last Recorded V/S: Last Vital Signs Temp 98.1 F 04/23/18 07:27 Pulse 120 H 04/23/18 07:27 Resp 20 04/23/18 07:27 BP 128/80 04/23/18 07:27 Pulse Ox 97 04/23/18 07:27 - Orders/Labs/Meds Orders: Active Orders 24 hr Category Date Time Status CULTURE STREP A CONFIRMATION [RM] Stat Lab 04/23/18 07:37 Results STREP SCRN A RAPID W CULT CONF [RM] Stat Lab 04/23/18 07:37 Results Meds: Medications Discontinued Medications Generic Name Dose Route Start Last Admin Trade Name Say PRN Reason Stop Dose Admin Ceftriaxone Sodium 1,000 mg/ 4 mls @ 4 mls/sec 04/23/18 07:58 Lidocaine HCl IM 04/23/18 07:59 ONETIME ONE Departure - Departure Time of Disposition: 08:03 Disposition: Home, Self-Care 01 Condition: Good Clinical Impression: Pharyngitis - Discharge Information Referrals: PCP,None [Primary Care Provider] - Additional Instructions: The following information is given to patients seen in the emergency department who are being discharged to home. This information is to outline your options for follow-up care. We provide all patients seen in our emergency department with a follow-up referral. The need for follow-up, as well as the timing and circumstances, are variable depending upon the specifics of your emergency department visit. If you don't have a primary care physician on staff, we will provide you with a referral. We always advise you to contact your personal physician following an emergency department visit to inform them of the circumstance of the visit and for follow-up with them and/or the need for any referrals to a consulting specialist. The emergency department will also refer you to a specialist when appropriate. This referral assures that you have the opportunity for follow-up care with a specialist. All of these measure are taken in an effort to provide you with optimal care, which includes your follow-up. Under all circumstances we always encourage you to contact your private physician who remains a resource for coordinating your care. When calling for follow-up care, please make the office aware that this follow-up is from your recent emergency room visit. If for any reason you are refused follow-up, please contact the [facility] emergency department at and asked to speak to the emergency department charge nurse. - My Orders Last 24 Hours: My Active Orders 04/23/18 07:37 CULTURE STREP A CONFIRMATION [RM] Stat STREP SCRN A RAPID W CULT CONF [RM] Stat - Assessment/Plan Last 24 Hours: My Active Orders 04/23/18 07:37 CULTURE STREP A CONFIRMATION [RM] Stat STREP SCRN A RAPID W CULT CONF [RM] Stat
== END 2018-04-23 08:12 | disposition home or self-care (01) ==
LOC: MW.ED 07:16
DX: J02.9 Acute pharyngitis, unspecified (principal); F17.210 Nicotine dependence, cigarettes, uncomplicated; Z79.899 Other long term (current) drug therapy
CPT/HCPCS: 87081; 87880; 96372; 99283; J0696; J2001

== ENCOUNTER 2018-10-08 10:37 | Emergency (ER) | payer MEDICAID ==
[2018-10-08] MEDS ORDERED: Sodium Chloride 0.9% 1,000 ML IV ONE (10:50)
[2018-10-08] MEDS ORDERED: Ondansetron 4 MG/2 ML SDV IVPUSH ONE (10:50)
--- NOTE | 2018-10-08 11:38 | EDM.PDOC ---
ED HPI GENERAL MEDICAL PROBLEM - General Chief Complaint: General Stated Complaint: VOMITING Time Seen by Provider: 10/08/18 10:50 Source of Information: Reports: Patient History Limitations: Reports: No Limitations - History of Present Illness INITIAL COMMENTS - FREE TEXT/NARRATIVE: HISTORY AND PHYSICAL: History of present illness: Patient is a 53-year-old male who presents to the ED today with concerns of feeling excessively tired and cough. Patient states that for the past month he has felt exhausted. He states he's had several days with continuous vomiting which then will subside and return within a few days. He states he's noticed a drastic decrease in appetite but has been able to maintain fluid intake. He states he feels that he just does not want to eat. Patient states he also has chronic diarrhea which makes him dehydrated. He does smoke for about 30 years varying between a half a pack to a pack. He has subjective fevers and chills and has not checked any temperature at home. Feels as if these had to sleep a lot more. He states normally he would sleep 6-8 hours a night but is having to sleep anywhere from 8-16 hours a night. He states he feels as if he's never rested. Patient states that a month ago he thought his symptoms were due to a wisdom tooth so he had his friend pulled out his tooth. He states he has not had any tooth pain since it was removed and that it healed up without any concerns. He states that when he had it removed he had some leftover amoxicillin that he took for the days following the removal. He states that he has no tooth pain today. Patient denies chest pain, shortness of breath, difficulties breathing, constipation, blood in stool/urine, palpitations, diaphoresis, syncope, or all other GI, , cardiovascular, or respiratory concerns. Patient denies any health history. Review of systems: As per history of present illness and below otherwise all systems reviewed and negative. Past medical history: As per history of present illness and as reviewed below otherwise noncontributory. Surgical history: As per history of present illness and as reviewed below otherwise noncontributory. Social history: See social history for further information Family history: As per history of present illness and as reviewed below otherwise noncontributory. Physical exam: General: Patient is alert, oriented, and in no acute distress. He does appear chronically ill but is sitting comfortably on exam table. Patient appears older than stated age. HEENT: Atraumatic, normocephalic, pupils equal and reactive bilaterally, negative for conjunctival pallor or scleral icterus, mucous membranes moist, TMs normal bilaterally, throat clear, neck supple, nontender, trachea midline. No drooling or trismus noted. No meningeal signs. No hot potato voice noted. Poor dentition but no acute dental process was visualized. Lungs: Diffuse low pitched wheezing heard in the bilateral lung bases, breath sounds equal bilaterally, chest nontender. Heart: Heart sounds are diminished but S1S2, regular rate and rhythm without overt murmur Abdomen: Soft, nondistended, nontender. Negative for masses or hepatosplenomegaly. Negative for costovertebral tenderness. Pelvis: Stable nontender. Genitourinary: Deferred. Rectal: Deferred. Skin: Intact, warm, dry. No lesions or rashes noted. Extremities: Atraumatic, negative for cords or calf pain. Neurovascular unremarkable. Neuro: Awake, alert, oriented. Cranial nerves II through XII unremarkable. Cerebellum unremarkable. Motor and sensory unremarkable throughout. Exam nonfocal. Notes: The patient is concerned that his history of tooth removal is what is causing his symptoms, this does not appear to be correlated to what he is expressing today. Will do labs and imaging today. Labs today are unremarkable. Patient does have elevated liver function tests. Discussed the need to follow this up with repeat lab testing with his primary care provider. Chest x-ray shows no acute cardiopulmonary process. Patient was offered Zofran for nausea at home but he declines this today. Discussed the importance for need for follow-up with her primary care provider. Supportive care measures were reviewed and discussed. Voices understanding and is agreeable to plan of care. Denies any further questions or concerns at this time. Diagnostics: CBC, CMP, UA, chest x-ray Therapeutics: Saline, Zofran Prescription: None Impression: 1. Generalized malaise 2. Cough 3. Transaminitis Plan: 1. You can use [id number] cough medications for symptoms of cough. 2. Follow up with her primary care provider as discussed. Phone numbers have been provided for you above. 3. Return to the ED as needed and as discussed. Definitive disposition and diagnosis as appropriate pending reevaluation and review of above. - Related Data Allergies Allergy/AdvReac Type Severity Reaction Status Date / Time No Known Allergies Allergy Verified 10/08/18 11:22 Home Meds: Home Meds Ascorbate Calcium [Vitamin C] 1 tab PO DAILY 01/22/18 [History] Cholecalciferol (Vitamin D3) [Vitamin D3] 1 tab PO DAILY 01/22/18 [History] Multivitamin [Multivitamins] 1 tab PO DAILY 01/22/18 [History] Vitamin B Complex [B Complex] 1 tab PO DAILY 01/29/18 [History] Past Medical History - Past Health History Medical/Surgical History: Denies Medical/Surgical History HEENT History: Reports: Other (See Below) Other HEENT History: wears contacts Cardiovascular History: Reports: Other (See Below) Gastrointestinal History: Reports: Chronic Diarrhea, Hemorrhoids Other Gastrointestinal History: recently treated for C-diff Genitourinary History: Reports: None, Renal Calculus Musculoskeletal History: Reports: Fracture Neurological History: Reports: Other (See Below) Other Neuro History: Mora Palsy X3 Psychiatric History: Reports: Anxiety Endocrine/Metabolic History: Reports: None Immunologic History: Reports: Other (See Below) Other Immunologic History: hx of lymphectomy - Infectious Disease History Infectious Disease History: Reports: C-Difficile, Chicken Pox Other Infectious Disease History: Lyme Disease - Past Surgical History Head Surgeries/Procedures: Reports: None GI Surgical History: Reports: Hernia, Inguinal, Hernia Repair/Other, Other (See Below) Other GI Surgeries/Procedures: hemmorhoids. internal and external hemorrhoidectomy Musculoskeletal Surgical History: Reports: Hip Replacement Other Musculoskeletal Surgeries/Procedures:: rt hip replacement Social & Family History - Family History Family Medical History: Noncontributory - Tobacco Use Smoking Status *Q: Current Every Day Smoker Years of Tobacco use: 35 Packs/Tins Daily: 0.5 - Caffeine Use Caffeine Use: Reports: Coffee, Soda - Alcohol Use Days Per Week of Alcohol Use: 7 Number of Drinks Per Day: 2 Total Drinks Per Week: 14 - Recreational Drug Use Recreational Drug Use: No ED ROS GENERAL - Review of Systems Review Of Systems: ROS reveals no pertinent complaints other than HPI. ED EXAM, GENERAL - Physical Exam Exam: See Below (See dictation) Course - Vital Signs Last Recorded V/S: Last Vital Signs Temp 98.4 F 10/08/18 11:19 Pulse 99 10/08/18 13:53 Resp 18 10/08/18 13:53 BP 140/99 H 10/08/18 13:53 Pulse Ox 97 10/08/18 13:53 - Orders/Labs/Meds Labs: Laboratory Tests 10/08/18 10/08/18 10/08/18 Range/Units 10:50 11:30 11:30 WBC 6.23 (4.0-11.0) K/uL RBC 4.52 (4.50-5.90) M/uL Hgb 15.3 (13.0-17.0) g/dL Hct 42.7 (38.0-50.0) % MCV 94.5 (80.0-98.0) fL MCH 33.8 H (27.0-32.0) pg MCHC 35.8 (31.0-37.0) g/dL RDW Std Deviation 56.5 (28.0-62.0) fl RDW Coeff of Zachary 17 H (11.0-15.0) % Plt Count 326 (150-400) K/uL MPV 10.30 (7.40-12.00) fL Neut % (Auto) 62.7 (48.0-80.0) % Lymph % (Auto) 26.5 (16.0-40.0) % [place] % (Auto) 9.6 (0.0-15.0) % Eos % (Auto) 0.2 (0.0-7.0) % Baso % (Auto) 1.0 (0.0-1.5) % Neut # (Auto) 3.9 (1.4-5.7) K/uL Lymph # (Auto) 1.7 (0.6-2.4) K/uL [place] # (Auto) 0.6 (0.0-0.8) K/uL Eos # (Auto) 0.0 (0.0-0.7) K/uL Baso # (Auto) 0.1 (0.0-0.1) K/uL Nucleated RBC % 0.0 /100WBC Nucleated RBCs # 0 K/uL Sodium 131 L (136-148) mmol/L Potassium 4.5 (3.5-5.1) mmol/L Chloride 95 L (98-107) mmol/L Carbon Dioxide 24.1 (21.0-32.0) mmol/L BUN 19 H (7.0-18.0) mg/dL Creatinine 1.0 (0.8-1.3) mg/dL Est Cr Clr Drug Dosing 74.84 mL/min Estimated GFR (MDRD) > 60.0 ml/min Glucose 152 H (74-106) mg/dL Calcium 8.2 L (8.5-10.1) mg/dL Total Bilirubin 1.0 (0.2-1.0) mg/dL AST 246 H (15-37) IU/L ALT 103 H (14-63) IU/L Alkaline Phosphatase 214 H (46-116) U/L Total Protein 6.6 (6.4-8.2) g/dL Albumin 3.0 L (3.4-5.0) g/dL Globulin 3.6 (2.6-4.0) g/dL Albumin/Globulin Ratio 0.8 L (0.9-1.6) Lipase 273 (73-393) U/L Urine Color YELLOW Urine Appearance CLEAR Urine pH 7.0 (5.0-8.0) Ur Specific [place] 1.020 (1.001-1.035) Urine Protein NEGATIVE (NEGATIVE) mg/dL Urine Glucose (UA) NEGATIVE (NEGATIVE) mg/dL Urine Ketones NEGATIVE (NEGATIVE) mg/dL Urine Occult Blood NEGATIVE (NEGATIVE) Urine Nitrite NEGATIVE (NEGATIVE) Urine Bilirubin NEGATIVE (NEGATIVE) Urine Urobilinogen 0.2 (<2.0) EU/dL Ur Leukocyte Esterase NEGATIVE (NEGATIVE) Meds: Medications Discontinued Medications Generic Name Dose Route Start Last Admin Trade Name Freq PRN Reason Stop Dose Admin Sodium Chloride 1,000 mls @ 999 mls/hr 10/08/18 10:50 10/08/18 11:38 Normal Saline IV 10/08/18 11:50 999 mls/hr STAT ONE Administration Ondansetron HCl 4 mg 10/08/18 10:50 10/08/18 11:38 Zofran IVPUSH 10/08/18 10:51 4 mg ONETIME ONE Administration Departure - Departure Time of Disposition: 13:39 Disposition: Home, Self-Care 01 Clinical Impression: Malaise and fatigue, Cough, Transaminitis - Discharge Information Instructions: Weakness, [id number] Referrals: PCP,None [Primary Care Provider] - Forms: ED Department Discharge Additional Instructions: The following information is given to patients seen in the emergency department who are being discharged to home. This information is to outline your options for follow-up care. We provide all patients seen in our emergency department with a follow-up referral. The need for follow-up, as well as the timing and circumstances, are variable depending upon the specifics of your emergency department visit. If you don't have a primary care physician on staff, we will provide you with a referral. We always advise you to contact your personal physician following an emergency department visit to inform them of the circumstance of the visit and for follow-up with them and/or the need for any referrals to a consulting specialist. The emergency department will also refer you to a specialist when appropriate. This referral assures that you have the opportunity for follow-up care with a specialist. All of these measure are taken in an effort to provide you with optimal care, which includes your follow-up. Under all circumstances we always encourage you to contact your private physician who remains a resource for coordinating your care. When calling for follow-up care, please make the office aware that this follow-up is from your recent emergency room visit. If for any reason you are refused follow-up, please contact the [facility] Emergency Department at and asked to speak to the emergency department charge nurse. [facility] [address] [place] [id number] [place] [address] 1. You can use [id number] cough medications for symptoms of cough. 2. Follow up with your primary care provider as discussed. Phone numbers have been provided for you above. 3. Return to the ED as needed and as discussed.
--- NOTE | 2018-10-08 12:42 | CR ---
INDICATION: Weakness for 2 months. Tired. Vomiting. COMPARISON: 12/01/2017 FINDINGS: PA and lateral views of the chest were obtained. The lungs remain clear. No focal or diffuse infiltrates are present. The heart remains normal in size. The mediastinum is normal in appearance. The osseous structures are normal in appearance for the patient`s age. IMPRESSION: Normal chest two views. Dictated by Markus Cox MD @ Oct 08 2018 12:39PM Signed by Dr. Markus Cox @ Oct 08 2018 12:41PM
[2018-10-08 13:15] LABS: SODIUM,NA 131 mmol/L (136-148)
[2018-10-08 13:17] LABS: CHLORIDE,CL 95 mmol/L (98-107)
[2018-10-08 13:54] VITALS: BP 140/99
== END 2018-10-08 13:54 | disposition home or self-care (01) ==
LOC: MW.ED 10:37
DX: R53.81 Other malaise (principal); R05 Cough; R74.0 Nonspecific elevation of levels of transaminase and lactic acid dehydrogenase [LDH]; F17.210 Nicotine dependence, cigarettes, uncomplicated; Z96.641 Presence of right artificial hip joint; R53.83 Other fatigue
CPT/HCPCS: 36415; 71046; 80053; 81003; 83690; 85025; 96361; 96374; 99283; J2405; J7040

== ENCOUNTER 2021-03-14 12:54 | Emergency (ER) | payer MEDICAID ==
[2021-03-14] MEDS ORDERED: Ketorolac 30 MG/ML SDV IVPUSH ONE (14:07)
[2021-03-14] MEDS ORDERED: Sodium Chloride 0.9% 1,000 ML IV ONE (14:07)
[2021-03-14 14:41] VITALS: PULSE 82
--- NOTE | 2021-03-14 14:45 | EDM.PDOC ---
ED HPI GENERAL MEDICAL PROBLEM - General Chief Complaint: Abdominal Pain Stated Complaint: UPPER ABDOMINAL PAIN Time Seen by Provider: 03/14/21 14:07 Source of Information: Reports: Patient History Limitations: Reports: No Limitations - History of Present Illness INITIAL COMMENTS - FREE TEXT/NARRATIVE: HISTORY AND PHYSICAL: History of present illness: Patient is a 55-year-old male who presents to the emergency room with complaints of left upper abdominal pain. He states he Googled basic anatomy and is concerned that there is "something wrong with my spleen". He states he has had pain for approximately a week and a half, notices it most in the morning and improves as the day goes on. The right lower chest is tender to palpation, states he's had an infrequent cough for "years" but doesn't think his lungs are affected. Patient denies any fever, chills, headache, change in vision, syncope or near syncope. Denies any chest pain, back pain, shortness of breath or cough. Denies any nausea, vomiting, diarrhea, constipation or dysuria. Has not noted any blood in urine or stool. Patient has been eating and drinking appropriately. Denies any injury or trauma to chest/abdomen/pelvis. He states he does have several drinks every evening. He has had a "bad tooth" to his right upper posterior jaw. A few weeks ago he did attempt to remove the tooth himself while drunk and states he was unsuccessful. He does continue to have some dental pain that he would like evaluated as well. Review of systems: As per history of present illness and below otherwise all systems reviewed and negative. Past medical history: As per history of present illness and as reviewed below otherwise noncontributory. Surgical history: As per history of present illness and as reviewed below otherwise noncontributory. Social history: See social history for further information Family history: As per history of present illness and as reviewed below otherwise noncontributory. Physical exam: General: Well developed and well nourished. Alert and orientated x 3. Nontoxic in appearance and in no acute distress. Vital signs are stable and have been reviewed by me. Nursing notes were reviewed. HEENT: Atraumatic, normocephalic, pupils equal and reactive bilaterally, negative for conjunctival pallor or scleral icterus, mucous membranes moist, TMs normal bilaterally, throat clear, neck supple, nontender, trachea midline. No drooling or trismus noted. No meningeal signs. No hot potato voice noted. Lungs: Clear to auscultation bilaterally. No wheezes, rales, or rhonchi. Chest tender to palpation to the left anterior lower chest wall. Normal work of breathing, no accessory muscles used. Heart: S1S2, regular rate and rhythm without overt murmur, gallops, or rubs. No JVD. No peripheral edema Abdomen: Soft, nondistended, nontender. Normoactive bowel sounds. Negative for masses or costovertebral tenderness. Skin: Intact, warm, dry. No lesions or rashes noted. Hematologic: No petechiae or purpra. Mucosa appropriate color and normal nail bed color and refill. Extremities: Atraumatic, moves all extremities per self without difficulty or deficits, negative for cords or calf pain. Neurovascular unremarkable. Neuro: Awake, alert, oriented. Cranial nerves II through XII unremarkable. Cerebellum unremarkable. Motor and sensory unremarkable throughout. Exam nonfocal. Psychiatric: Mood and affect are appropriate. Normal thought process. Answering questions appropriately. Notes: *This patient was seen and evaluated during the 2019 SARS-CoV-2 novel coronavirus pandemic period. Community viral transmission is ongoing at time of this encounter and the emergency department is operating under pandemic response procedures. Patient is a 55-year-old male who presents to the emergency room with concerns that he has injured his spleen. He denies any injury or trauma. His abdomen is soft and nontender. He states he had googled basic anatomy and due to his findings felt that the spleen was the source of pain. He does have pain with palpation of the right lateral chest that does not radiate, is reproducible. We will do basic labs and chest x-ray. Patient's AST and ALT are elevated, I do see he has a history of this in the past. States he does drink on a daily basis. Chest x-ray shows an indeterminate somewhat unusual small opacities in both lung apices which have developed since the prior exam. These opacities do not have a typical appearance for pneumonia or neoplasm. Chest CT evaluation is recommended for further assessment. I did talk with the patient about moving forward with a CT of the chest, he states he feels better after the IV fluids and Toradol and would like to be discharged to home. He states he currently does not have insurance and is unable to afford further imaging. I did encourage him to continue to monitor his symptoms, after talking with him we will do a Z-Shlomo. He states he will follow up with a primary care provider if he continues to feel unwell and will consider doing the chest CT. I have talked with the patient about today's findings, in addition to providing specific details for plan of care. Reassessment at the time of disposition demonstrates that the patient is in no acute distress. The patient is stable for discharge, counseling was provided and we discussed in great detail signs and symptoms that would prompt them to return to the Emergency Department. Medication, follow up and supportive care measures were reviewed and discussed. Voices understanding and is agreeable to plan of care. Denies any further questions or concerns at this time. Diagnostics: CBC, CMP, UA, Lipase, Therapeutics: IV fluids, Toradol Prescription: Z-Shlomo Impression: Transaminitis Costochondritis Plan: 1. You were evaluated today on an emergent basis. Your blood work is unremarkable. The chest x-ray does show opacities in both lungs and the radiologist did recommend a chest CT. At this time you decided against moving forward with further imaging. Should your symptoms continue or new symptoms develop please return to the emergency room or follow-up with your primary care provider to reconsider having further work-up of this finding. 2. You can alternate Tylenol and ibuprofen as needed for pain and fever management. 3. We encourage you to follow up with your primary care provider and/or recommended specialist in the next few days for re-evaluation and further care/management. 4. If your symptoms should worsen, new symptoms develop or any of the signs and symptoms we discussed should arise please return to the emergency room or call 911 (if needed). Definitive disposition and diagnosis as appropriate pending reevaluation and review of above. LUQ Pain Score (Numeric/FACES): 3 - Related Data Allergies Allergy/AdvReac Type Severity Reaction Status Date / Time No Known Allergies Allergy Verified 03/14/21 13:42 Home Meds: Home Meds Ascorbate Calcium [Vitamin C] 1 tab PO DAILY 01/22/18 [History] Cholecalciferol (Vitamin D3) [Vitamin D3] 1 tab PO DAILY 01/22/18 [History] Multivitamin [Multivitamins] 1 tab PO DAILY 01/22/18 [History] Vitamin B Complex [B Complex] 1 tab PO DAILY 01/29/18 [History] Azithromycin [Zithromax] 1 dose PO DAILY 5 Days #6 tab 03/14/21 [Rx] Glucosamine [Glucosamine Sulfate] 1 dose PO DAILY 03/14/21 [History] Krill/Om-3/DHA/EPA/Phospho/Ast [Krill Oil 1,000 mg Softgel] 1 dose PO DAILY 03/14/21 [History] [place]-3/DHA/Epa/Fish Oil [Fish Oil 1,000 mg Softgel] 1 dose PO DAILY 03/14/21 [History] Past Medical History - Past Health History Medical/Surgical History: Denies Medical/Surgical History HEENT History: Reports: Other (See Below) Other HEENT History: wears contacts Cardiovascular History: Reports: None Respiratory History: Reports: None Gastrointestinal History: Reports: Chronic Diarrhea, Hemorrhoids Other Gastrointestinal History: recently treated for C-diff Genitourinary History: Reports: Renal Calculus Musculoskeletal History: Reports: Fracture Neurological History: Reports: Other (See Below) 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 Psychiatric History: Reports: Anxiety Endocrine/Metabolic History: Reports: None Hematologic History: Reports: None Immunologic History: Reports: Other (See Below) Other Immunologic History: hx of lymphectomy Oncologic (Cancer) History: Reports: None Dermatologic History: Reports: None - Infectious Disease History Infectious Disease History: Reports: C-Difficile, Chicken Pox, Other (See Below) Other Infectious Disease History: Lyme Disease - Past Surgical History Head Surgeries/Procedures: Reports: None HEENT Surgical History: Reports: None GI Surgical History: Reports: Hernia, Inguinal, Hernia Repair/Other, Other (See Below) Other GI Surgeries/Procedures: hemmorhoids. internal and external hemorrhoidectomy Musculoskeletal Surgical History: Reports: Hip Replacement Other Musculoskeletal Surgeries/Procedures:: rt hip replacement Social & Family History - Family History Family Medical History: No Pertinent Family History - Tobacco Use Tobacco Use Status *Q: Current Every Day Tobacco User Years of Tobacco use: 39 Packs/Tins Daily: 1 - Caffeine Use Caffeine Use: Reports: Coffee, Soda - Recreational Drug Use Recreational Drug Use: Yes Drug Use in Last 12 Months: Yes Recreational Drug Type: Reports: Marijuana/Hashish ED ROS GENERAL - Review of Systems Review Of Systems: Comprehensive ROS is negative, except as noted in HPI. ED EXAM, GENERAL - Physical Exam Exam: See Below (See dictation) Course - Vital Signs Last Recorded V/S: Last Vital Signs Temp 96.3 F L 03/14/21 13:44 Pulse 82 03/14/21 14:39 Resp 18 03/14/21 14:39 BP 160/117 H 03/14/21 14:39 Pulse Ox 97 03/14/21 14:39 - Orders/Labs/Meds Labs: Laboratory Tests 03/14/21 03/14/21 03/14/21 Range/Units 13:24 14:07 14:07 WBC 9.00 (4.0-11.0) K/uL RBC 5.01 (4.50-5.90) M/uL Hgb 16.5 (13.0-17.0) g/dL Hct 48.0 (38.0-50.0) % MCV 95.8 (80.0-98.0) fL MCH 32.9 H (27.0-32.0) pg MCHC 34.4 (31.0-37.0) g/dL RDW Std Deviation 52.9 (28.0-62.0) fl RDW Coeff of Zachary 15 (11.0-15.0) % Plt Count 247 (150-400) K/uL MPV 10.50 (7.40-12.00) fL Neut % (Auto) 59.0 (48.0-80.0) % Lymph % (Auto) 27.2 (16.0-40.0) % [place] % (Auto) 11.2 (0.0-15.0) % Eos % (Auto) 1.9 (0.0-7.0) % Baso % (Auto) 0.7 (0.0-1.5) % Neut # (Auto) 5.3 (1.4-5.7) K/uL Lymph # (Auto) 2.5 H (0.6-2.4) K/uL [place] # (Auto) 1.0 H (0.0-0.8) K/uL Eos # (Auto) 0.2 (0.0-0.7) K/uL Baso # (Auto) 0.1 (0.0-0.1) K/uL Nucleated RBC % 0.0 /100WBC Nucleated RBCs # 0 K/uL Sodium 138 (136-148) mmol/L Potassium 4.6 (3.5-5.1) mmol/L Chloride 101 (98-107) mmol/L Carbon Dioxide 28.5 (21.0-32.0) mmol/L BUN 9 (7.0-18.0) mg/dL Creatinine 0.9 (0.8-1.3) mg/dL Est Cr Clr Drug Dosing 84.28 mL/min Estimated GFR (MDRD) > 60.0 ml/min Glucose 99 (74-106) mg/dL Calcium 9.7 (8.5-10.1) mg/dL Total Bilirubin 0.6 (0.2-1.0) mg/dL AST 60 H (15-37) IU/L ALT 83 H (14-63) IU/L Alkaline Phosphatase 88 (46-116) U/L Troponin I (0.000-0.056) ng/mL Total Protein 7.7 (6.4-8.2) g/dL Albumin 4.0 (3.4-5.0) g/dL Globulin 3.7 (2.6-4.0) g/dL Albumin/Globulin Ratio 1.1 (0.9-1.6) Lipase 151 (73-393) U/L Urine Color YELLOW Urine Appearance CLEAR Urine pH 7.5 (5.0-8.0) Ur Specific Hasty 1.020 (1.001-1.035) Urine Protein NEGATIVE (NEGATIVE) mg/dL Urine Glucose (UA) NEGATIVE (NEGATIVE) mg/dL Urine Ketones NEGATIVE (NEGATIVE) mg/dL Urine Occult Blood NEGATIVE (NEGATIVE) Urine Nitrite NEGATIVE (NEGATIVE) Urine Bilirubin NEGATIVE (NEGATIVE) Urine Urobilinogen 0.2 (<2.0) EU/dL Ur Leukocyte Esterase NEGATIVE (NEGATIVE) 03/14/21 Range/Units 14:07 WBC (4.0-11.0) K/uL RBC (4.50-5.90) M/uL Hgb (13.0-17.0) g/dL Hct (38.0-50.0) % MCV (80.0-98.0) fL MCH (27.0-32.0) pg MCHC (31.0-37.0) g/dL RDW Std Deviation (28.0-62.0) fl RDW Coeff of Zachary (11.0-15.0) % Plt Count (150-400) K/uL MPV (7.40-12.00) fL Neut % (Auto) (48.0-80.0) % Lymph % (Auto) (16.0-40.0) % [place] % (Auto) (0.0-15.0) % Eos % (Auto) (0.0-7.0) % Baso % (Auto) (0.0-1.5) % Neut # (Auto) (1.4-5.7) K/uL Lymph # (Auto) (0.6-2.4) K/uL [place] # (Auto) (0.0-0.8) K/uL Eos # (Auto) (0.0-0.7) K/uL Baso # (Auto) (0.0-0.1) K/uL Nucleated RBC % /100WBC Nucleated RBCs # K/uL Sodium (136-148) mmol/L Potassium (3.5-5.1) mmol/L Chloride (98-107) mmol/L Carbon Dioxide (21.0-32.0) mmol/L BUN (7.0-18.0) mg/dL Creatinine (0.8-1.3) mg/dL Est Cr Clr Drug Dosing mL/min Estimated GFR (MDRD) ml/min Glucose (74-106) mg/dL Calcium (8.5-10.1) mg/dL Total Bilirubin (0.2-1.0) mg/dL AST (15-37) IU/L ALT (14-63) IU/L Alkaline Phosphatase (46-116) U/L Troponin I < 0.050 (0.000-0.056) ng/mL Total Protein (6.4-8.2) g/dL Albumin (3.4-5.0) g/dL Globulin (2.6-4.0) g/dL Albumin/Globulin Ratio (0.9-1.6) Lipase (73-393) U/L Urine Color Urine Appearance Urine pH (5.0-8.0) Ur Specific Hasty (1.001-1.035) Urine Protein (NEGATIVE) mg/dL Urine Glucose (UA) (NEGATIVE) mg/dL Urine Ketones (NEGATIVE) mg/dL Urine Occult Blood (NEGATIVE) Urine Nitrite (NEGATIVE) Urine Bilirubin (NEGATIVE) Urine Urobilinogen (<2.0) EU/dL Ur Leukocyte Esterase (NEGATIVE) Meds: Medications Discontinued Medications Generic Name Dose Route Start Last Admin Trade Name Say PRN Reason Stop Dose Admin Sodium Chloride 1,000 mls @ 999 mls/hr 03/14/21 14:07 03/14/21 14:42 Normal Saline IV 03/14/21 15:07 999 mls/hr STAT ONE Administration Ketorolac Tromethamine 30 mg 03/14/21 14:07 03/14/21 14:42 Ketorolac 30 Mg/Ml Sdv IVPUSH 03/14/21 14:08 30 mg ONETIME ONE Administration Departure - Departure Time of Disposition: 15:17 Disposition: Home, Self-Care 01 Clinical Impression: Costochondritis, Transaminitis - Discharge Information Prescriptions: Azithromycin [Zithromax] 1 dose PO DAILY 5 Days #6 tab Instructions: Costochondritis, [id number] Referrals: PCP,None [Primary Care Provider] - Forms: ED Department Discharge Additional Instructions: The following information is given to patients seen in the emergency department who are being discharged to home. This information is to outline your options for follow-up care. We provide all patients seen in our emergency department with a follow-up referral. The need for follow-up, as well as the timing and circumstances, are variable depending upon the specifics of your emergency department visit. If you don't have a primary care physician on staff, we will provide you with a referral. We always advise you to contact your personal physician following an emergency department visit to inform them of the circumstance of the visit and for follow-up with them and/or the need for any referrals to a consulting specialist. The emergency department will also refer you to a specialist when appropriate. This referral assures that you have the opportunity for follow-up care with a specialist. All of these measure are taken in an effort to provide you with optimal care, which includes your follow-up. Under all circumstances we always encourage you to contact your private physi dhara who remains a resource for coordinating your care. When calling for follow- up care, please make the office aware that this follow-up is from your recent emergency room visit. If for any reason you are refused follow-up, please contact the [facility] Emergency Department at and asked to speak to the emergency department charge nurse. [facility] [address] [place] [address] [facility] [address] [place] [address] Thank you for choosing the [facility] emergency department in [place] for your medical needs today. It was a pleasure caring for you. Today you were seen in the emergency department for chest/abdominal pain. 1. You were evaluated today on an emergent basis. Your blood work is unremarkable. The chest x-ray does show opacities in both lungs and the radiologist did recommend a chest CT. At this time you decided against moving forward with further imaging. Should your symptoms continue or new symptoms develop please return to the emergency room or follow-up with your primary care provider to reconsider having further work-up of this finding. 2. You can alternate Tylenol and ibuprofen as needed for pain and fever management. 3. We encourage you to follow up with your primary care provider and/or recommended specialist in the next few days for re-evaluation and further care/management. 4. If your symptoms should worsen, new symptoms develop or any of the signs and symptoms we discussed should arise please return to the emergency room or call 911 (if needed). Sepsis Event Note (ED) - Evaluation Sepsis Screening Result: No Definite Risk - Focused Exam Vital Signs: Vital Signs Temp Pulse Resp BP Pulse Ox 03/14/21 14:39 82 18 160/117 H 97 03/14/21 13:44 96.3 F L 96 18 94 L
[2021-03-14 14:56] LABS: BLOOD UREA NITROGEN,BUN 9 mg/dL (7.0-18.0); CARBON DIOXIDE,CO2 28.5 mmol/L (21.0-32.0); CHLORIDE,CL 101 mmol/L (98-107); GLUCOSE RANDOM 99 mg/dL (74-106); LIPASE 151 U/L (73-393); POTASSIUM,K 4.6 mmol/L (3.5-5.1); SODIUM,NA 138 mmol/L (136-148)
--- NOTE | 2021-03-14 15:04 | CR ---
INDICATION: Chest pain and shortness of breath TECHNIQUE: Chest 2 views COMPARISON: 10/08/2018 FINDINGS: Cardiovascular and mediastinum: Heart size and vasculature are normal in caliber and appearance. Lungs and pleural spaces: There are nonspecific small opacities in both lung apices which were not present on the prior study. Remainder of the lungs and pleural spaces are clear. No pneumothorax. Bones and soft tissues: No significant findings. IMPRESSION: Indeterminate somewhat unusual small opacities in both lung apices which have developed since the prior exam. These opacities do not have a typical appearance for pneumonia or neoplasm. Chest CT evaluation is recommended for further assessment. Dictated by Reuben Lara MD @ 03/14/2021 3:02:[address] Reuben Lara @ Mar 14 2021 3:02PM
[2021-03-14 15:51] VITALS: BP 138/72
== END 2021-03-14 15:45 | disposition home or self-care (01) ==
LOC: MW.ED 12:54
DX: M94.0 Chondrocostal junction syndrome [Tietze] (principal); R74.01 Elevation of levels of liver transaminase levels; Z72.0 Tobacco use
CPT/HCPCS: 36415; 71046; 80053; 81003; 83690; 84484; 85025; 96374; 99284; J1885; J7030